=== PATIENT | female | born 1960 | race Caucasian/White ===

== ENCOUNTER → 2017-09-12 | Day surgery (SDC) | payer BC ==
[~2017-09-12] MED LIST: DESFLURANE 31 TO 60 MINUTES IH; DESFLURANE 61 TO 120 MINUTES IH; DEXAMETHASONE SOD PHOS 20 MG/5 ML VIAL.; FAMOTIDINE 20 MG/2 ML VIAL; GELATIN SPONGE SIZE 100.; GLYCOPYRROLATE 1 MG/5 ML VIAL.; LIDOCAINE 1% PF 2 ML VIAL. ID; LIDOCAINE 1% PF 5 ML VIAL.; MORPHINE SULFATE 2 MG/ML DISP.SYRIN. IV; NEOSTIGMINE 10 MG/10 ML VIAL.; ONDANSETRON PF 4 MG/2 ML VIAL.; ONDANSETRON PF 4 MG/2 ML VIAL. IV; PROCHLORPERAZINE 10 MG/2 ML VIAL. IV; PROPOFOL 20 ML IV; ROCURONIUM 50 MG/5 ML VIAL.; SCOPOLAMINE 1.5MG PATCH. TD; ceFAZolin 2GM PREMIX 2 GM/50 ML BAG IV; diphenhydrAMINE 50 MG/ML VIAL; fentaNYL PF VIAL 100 MCG/2 ML VIAL; fentaNYL PF VIAL 100 MCG/2 ML VIAL IV
[2017-09-12 13:10] LABS: ADD MAN DIFF? NO
[2017-09-12 13:15] LABS: BASO # 0.1 x10^3/uL (0.0-0.2); BASO % 1 % (0-3); EOS # 0.1 x10^3/uL (0.0-0.7); EOS % 1 % (0-3); HEMATOCRIT 39.7 % (36.0-47.0); HEMOGLOBIN 13.3 g/dL (12.0-15.5); LYMPH # 2.4 x10^3/uL (1.0-4.8); LYMPH % 28 % (24-48); MEAN CORPUSCULAR HEMOGLOBIN 28 pg (25-35); MEAN CORPUSCULAR HGB CONC 34 g/dL (31-37); MEAN CORPUSCULAR VOLUME 84 fL (79-100); MONO # 0.4 x10^3/uL (0.0-1.1); MONO % 5 % (0-9); NEUT # 5.7 x10^3uL (1.8-7.7); NEUT % 65 % (31-73); PLATELET COUNT 245 x10^3/uL (140-400); RED BLOOD COUNT 4.74 x10^6/uL (3.50-5.40); RED CELL DISTRIBUTION WIDTH 16.2 % (11.5-14.5); WHITE BLOOD COUNT 8.7 x10^3/uL (4.0-11.0)
[2017-09-12 13:24] LABS: INR 1.2 (0.8-1.1); PARTIAL THROMBOPLASTIN TIME 28 SEC (24-38)
[2017-09-12] MEDS: IV RINGERS,LACTATED 1000ML 1,000 ML IV (13:27)
[2017-09-12] MEDS: CHLORHEXIDINE 0.12% 15 ML MOUTHWASH. SWSP (13:30)
[2017-09-12] MEDS: BUPIVAC MPF-EPI 0.5%-1:200000 30 ML VIAL. INJ (13:59)
[2017-09-12] MEDS: GELATIN SPONGE SIZE 100. TP (13:59)
== END ==
LOC: SURG 12:30
DX: K02.9 Dental caries, unspecified (principal); G47.33 Obstructive sleep apnea (adult) (pediatric); I25.10 Atherosclerotic heart disease of native coronary artery without angina pectoris; I26.99 Other pulmonary embolism without acute cor pulmonale; I48.91 Unspecified atrial fibrillation; I10 Essential (primary) hypertension; E66.9 Obesity, unspecified; E78.00 Pure hypercholesterolemia, unspecified; M19.90 Unspecified osteoarthritis, unspecified site; Z79.01 Long term (current) use of anticoagulants; Z90.710 Acquired absence of both cervix and uterus; Z98.890 Other specified postprocedural states; Z88.5 Allergy status to narcotic agent; Z88.8 Allergy status to other drugs, medicaments and biological substances; Z79.899 Other long term (current) drug therapy
CPT/HCPCS: 36415; 85025; 85610; 85730; J0690; J1100; J1200; J2405; J2704; J2710; J3010; J3490; J7120; S0028